=== PATIENT | male | born 1945 | race Caucasian/White ===

== ENCOUNTER 2017-05-15 12:03 | Outpatient (CLI) | payer MEDICARE, OTHER ==
[~2017-05-15] VITALS: Ht 167.6 cm; Wt 118.2 kg
--- NOTE | ~2017-05-15 | HEMODYNAMI ---
PATIENT:DAYA MONAHAN MEDICAL RECORD: [id number] : 49 LOCATION:[facility]ina[facility] ADMISSION DATE: 05/15/17 Generatedon:05/15/201714:23 Patient name: DAYA MONAHAN Patient #: [id number] SSN: : 1945 Date of study: 05/15/2017 Page: Of Hemodynamic Procedure Report Patient Data Patient Demographics Procedure consent was obtained First Name: DAYA Gender: Male Last Name: TANIYA : 1945 [facility] Initial: ANALIA Age: 72 year(s) Patient #: [id number] Race: Unknown Additional ID: [id number] Contact details Address: [place] [address] State: [place] City: [place] Zip code: [address] Past Medical History Allergies: No known allergies Admission Admission Data Admission Date: 05/15/2017 Admission Time: 12:03 Height (in.): 5.75 BSA: 0.39 (m2) Height (cm.): 14.61 BMI: 5698.99 (kg/m2) Weight (lbs.): 268 Weight (kg.): 121.56 Lab Results Lab Result Date: 05/15/2017 Lab Result Time: 0:00 Biochemistry Name Units Result Min Max BUN mg/dl 13 --(--*-)-- 7 18 Creatinine mg/dl 0.8 --(-*--)-- 0.6 1.3 CBC Name Units Result Min Max Hemoglobin g/dl 14.5 --(*---)-- 13.5 17.5 Procedure Procedure Types Cath Procedure Diagnostic Procedure [facility] w/Coronaries Miscellaneous Procedures Moderate Sedation up to 30 minutes Procedure Description Procedure Date Procedure Date: 05/15/2017 Procedure Start Time: 14:07 Procedure End Time: 14:22 Procedure Staff Name Function Cisco Woodall MD Performing Physician Carlton Mariscal RT Monitor Gem May RT Scrub Bryan Pierce RN Nurse Procedure Data Cath Procedure Fluoroscopy Diagnostic fluoroscopy Total fluoroscopy Time: 2.8 time: 2.8 min min Diagnostic fluoroscopy Total fluoroscopy dose: 767 dose: 767 mGy mGy Contrast Material Contrast Material Type Amount (ml) Isovue 300 72 Entry Location Entry Primary Successful Side Size Upsize Upsize Entry Closure Succes sful Closure Location (Fr) 1 (Fr) 2 (Fr) Remarks Device Remarks Femoral Right 5 Fr Exoseal artery Estimated blood loss: 5 ml Diagnostic catheters Device Type Used For End Catheter Placement MULTIPACK JL 4.0 5Fr Procedure catheter MULTIPACK 3DRC 5Fr Procedure catheter MULTIPACK Pigtail 5 Fr Procedure catheter Procedure Complications No complications Procedure Medications Medication Administration Route Dosage Oxygen NC 2 l/min Heparin Flush Bag added to field 2 bags (1000units/500ml NS) 0.9% NaCl I.V. 100 ml/hr Fentanyl I.V. 50 mcg Versed I.V. 1 mg Fentanyl I.V. 50 mcg Versed I.V. 1 mg Hemodynamics Rest BSA: 0.39 (m2) HGB: 14.5 (g/dl) O2 Consumption: Estimated: 43.98 (ml/min) O2 Con sumption indexed: Estimated:112.77 (ml/min/m) Heart Rate: 62 (bpm) Pressure Samples Time Site Value (mmHg) Purpose Heart Use Rate(bpm) 14:17 LV 145/10,13 Snapshot 78 14:17 AO 150/76(111) Pullback 82 14:17 LV 158/13,12 Pullback 82 Gradients Valve Time Site 1 Site 2 Mean SEP/DFP Peak To Heart Use (mmHg) (sec/min) Peak Rate (mmHg) (bpm) Aortic 14:17 LV AO 7 24 8 82 158/13,12 150/76(111) Calculations Valve P-P Mean Valve Index Valve Source Name Gradient Area Flow (cm2) Aortic 8 7 8 7 Snapshots Pre Cath Intra NCS Post Cath Vital Signs Time Heart Resp SPO2 etCO2 NIBP (mmHg) Rhythm Pain Sedation Rate (ipm) (%) (mmHg) Status Level (bpm) 13:55:18 60 20 98 0 167/95(147) NSR 0 (11) 10(A) , No pain 14:00:08 62 15 97 38 160/85(140) NSR 0 (11) 10(A) , No pain 14:04:59 62 17 99 27.3 150/82(117) NSR 0 (11) 10(A) , No pain 14:09:46 63 18 93 0 149/90(119) NSR 0 (11) 9(A) , No pain 14:14:33 72 17 96 13.6 148/91(115) NSR 0 (11) 9(A) , No pain 14:19:20 76 18 99 20.5 158/93(130) NSR 0 (11) 9(A) , No pain Medications Time Medication Route Dose Verified Delivered Reason Notes Effec tiveness by by 13:54:39 Oxygen NC 2 Cisco Bryan Per l/min [facility] Anmol Pierce RN physician 13:54:48 Heparin Flush added 2 Cisco Bryan used for Bag to bags [facility] Anmol Pierce RN procedure (1000units/500ml field NS) 13:54:57 0.9% NaCl I.V. 100 Cisco Bryan Per ml/hr [facility] Anmol Pierce RN physician 14:06:20 Fentanyl I.V. 50 Cisco Dowy for [facility] Anmol Pierce RN sedation 14:06:28 Versed I.V. 1 mg Cisco Dowy for [facility] Anmol Pierce RN sedation 14:08:34 Fentanyl I.V. 50 Cisco Dowy for [facility] Anmol Pierce RN sedation 14:08:39 Versed I.V. 1 mg Cisco Bryan for [facility] Anmol Pierce RN sedation Procedure Log Time Note 13:28:49 Patient Height : 5.75 inches 13:28:53 Patient Weight : 268 lbs 13:29:49 H&P Date Dictated: 04/18/2017 Within 30 days and on chart., H&P Addendum completed by physician on day of procedure. (MUST COMPLETE FOR ALL OUTPATIENTS). 13:30:03 Bryan Pierce RN sent for patient. Start room use. 13:30:19 Lab Result : BUN 13 mg/dl 13:30:19 Lab Result : Creatinine 0.8 mg/dl 13:30:19 Lab Result : Hemoglobin 14.5 g/dl 13:44:26 Patient received from Pre/Post Procedure Room to CCL 1 Alert and oriented. Tansferred to table in Supine position. 13:44:27 Warm blankets applied, and radha hugger turned on for patient comfort. 13:44:27 Correct patient and procedure confirmed by team. 13:44:30 Signed procedure consent form obtained from patient. 13:44:31 ECG and BP/O2 sat monitors applied to patient. 13:54:18 Vital chart was started 13:54:39 Oxygen 2 l/min NC was administered by Bryan Pierce RN; Per physician; 13:54:48 Heparin Flush Bag (1000units/500ml NS) 2 bags added to field was administered by Bryan Pierce RN; used for procedure; 13:54:57 0.9% NaCl 100 ml/hr I.V. was administered by Bryan Pierce RN; Per physician; 13:58:10 Baseline sample Acquired. 13:58:18 Rhythm: sinus rhythm 13:58:22 Pre-procedure instructions explained to patient. 13:58:24 Pre-op teaching completed and patient verbalized understanding. 13:59:07 Family in waiting room. 13:59:09 Patient NPO since Midnight. 13:59:14 Patient allergic to No known allergies 13:59:17 Is patient on blood thinner?No 13:59:18 Patient diabetic? No. 13:59:23 Previous problem with sedation/anesthesia? No ? 13:59:25 Snore? No 13:59:26 Sleep apnea? No 13:59:27 Deviated septum? No 13:59:28 Opens mouth fully? Yes 13:59:29 Sticks out tongue? Yes 13:59:36 Dentures? Yes in tight 13:59:37 Airway obstruction? No ? 13:59:46 Pre procedure: right dorsailis pedis pulse 2+ Normal; easily identifiable; not easily obliterated 14:00:19 Patient pain scale 0/10 ?. 14:00:31 IV patent on arrival in left forearm with 0.9% NaCl at [facility]. 14:00:46 Lab results completed and on chart. 14:00:53 Right groin area was prepped with chlora-prep and draped in sterile fashion 14:00:54 Alarms reviewed by R. N. 14:00:54 Sharps counted by scrub and verified by R.N. 14:00:58 Use device set Femoral Dx 14:01:02 ACIST Syringe (31091) opened to sterile field. 14:01:03 Medline Cath Pack ([id number]) opened to sterile field. 14:01:04 ACIST Hand Control (85401) opened to sterile field. 14:01:04 ACIST Manifold (80708) opened to sterile field. 14:01:36 Tegaderm 4 x 4 (1626W) opened to sterile field. 14:01:40 Bag Decanter (2002S) opened to sterile field. 14:01:45 PERCUTANEOUS ENTRY 19GA needle opened to sterile field. 14:01:46 DIAGNOSTIC Multipack 5Fr catheter set (QO4840) opened to sterile field. 14:01:47 DIAGNOSTIC WIRE .035 260cm J wire (292922) opened to sterile field. 14:01:47 SHEATH 5FR Heflin (YLW448) opened to sterile field. 14:01:54 Physician arrived 14::55 --------ALL STOP TIME OUT------ 14::55 Final Timeout: patient, procedure, and site verified with staff and physician. All members of the team are in agreement. 14:01:56 Right groin site verified by team. 14:01:59 Physical assessment completed. ASA score P 2 - A patient with mild systemic disease as per Cisco Woodall MD. 14:02:03 Sedation plan: IV Moderate Sedation Medication:Versed, Fentanyl 14:05:16 Zero performed for pressure channel P1 14:06:20 Fentanyl 50 mcg I.V. was administered by Bryan Pierce RN; for sedation; 14:06:28 Versed 1 mg I.V. was administered by Bryan Pierce RN; for sedation; 14:07:12 Procedure started. 14:07:12 Full Disclosure recording started 14:07:14 Local anesthetic to right femoral artery with Lidocaine 2% by Cisco Woodall MD.INITIAL ACCESS ONLY 14:08:32 A 5 Fr sheath was inserted into the Right Femoral artery 14:08:34 Fentanyl 50 mcg I.V. was administered by Bryan Pierce RN; for sedation; 14:08:39 Versed 1 mg I.V. was administered by Bryan Pierce RN; for sedation; 14:11:12 A MULTIPACK JL 4.0 5Fr catheter was advanced over the wire and used for Procedure. 14:13:05 Catheter exchanged over wire. 14:13:12 A MULTIPACK 3DRC 5Fr catheter was advanced over the wire and used for Procedure. 14:15:29 Catheter exchanged over wire. 14:15:35 A MULTIPACK Pigtail 5 Fr catheter was advanced over the wire and used for Procedure. 14:16:01 EXOSEAL 5Fr (EX500) opened to sterile field. 14:17:17 LV hemodynamics recorded. 14:17:18 LV gram done using [place] 14:17:20 Injector settings: Ml/sec: 10, Volume: 20, 14:17:32 EF : 55 % 14:17:45 Catheter removed. 14:18:08 Sheath removed intact; hemostasis achieved with Exoseal to the Right Femoral artery. 14:18:10 Procedure ended.(Physican Out) 14:18:19 Fluoroscopy time 02.80 minutes. 14:18:23 Fluoroscopy dose: 767 mGy 14:18:23 Flurop Dose total: 767 14:18:31 Contrast amount:Isovue 300 72ml. 14:18:35 Sharps counted by scrub and verified by R.N. 14:18:37 Insertion/operative site no bleeding no hematoma. 14:18:39 Post-op/insertion site Right Femoral artery dressed using a 4 x 4 and Tegaderm. 14:18:43 Post right femoral artery:stable, soft, clean and dry 14:19:09 Post Procedure Pulses reassessed and unchanged 14:19:14 Post-procedure physical assessment completed. ASA score P 2 - A patient with mild systemic disease as per Cisco Woodall MD. 14:19:18 Post procedure rhythm: unchanged. 14:19:21 Estimated blood loss: 5 ml 14:19:23 Post procedure instruction explained to patient.Patient verbalizes understanding. 14:19:23 Patient needs reinforcement of post procedure teaching. 14:20:54 Procedure type changed to Cath procedure, Diagnostic procedure, LHC, LHC w/Coronaries, Miscellaneous Procedures, Moderate Sedation up to 30 minutes 14:22:00 Procedure and supply charges have been captured, reviewed, submitted and are correct. 14:22:04 Procedure Complication : No complications 14:22:06 Vital chart was stopped 14:22:07 See physician's report for complete and final results. 14:22:09 Report given to Pre/Post Procedure Room. 14:22:12 Patient transfered to Pre/Post Procedure Room with Stretcher. 14:22:15 Procedure ended. 14:22:15 Full Disclosure recording stopped 14:22:31 End room use (Document Last) Device Usage Item Name Manufacture Quantity Catalog Hospital Part Current Minimal Lot# / Number Charge Number Stock Stock Serial# Code ACIST Acist 1 80733 739572 216356 714663 20 Syringe Medical (03796) Systems Inc Medline Cath Cardinal 1 [id number] 495762 08544 771255 5 Pack Health ([id number]) ACIST Hand Acist 1 70118 001687 144240 131803 5 Control Medical (99378) Systems Inc ACIST Acist 1 55301 396615 647794 877561 5 Manifold Medical (90597) Systems Inc Tegaderm 4 x 3M 1 1626W 268670 554922 306190 5 4 (1626W) Bag Decanter Microtek 1 2002S 066175 05580 606246 5 (2002S) Medical Inc. PERCUTANEOUS Cook Medical 1 V18599 134310 566185 5 ENTRY 19GA needle DIAGNOSTIC Cardinal 1 QA7082 202388 52855 189818 30 Multipack Health 5Fr catheter set (WL6006) DIAGNOSTIC [facility] 1 963372 132437 312911 268262 30 WIRE .035 260cm J wire (330981) SHEATH 5FR Terumo 1 KNO103 452727 351613 000444 40 Heflin (TVL664) MULTIPACK JL Cardinal 1 987622 5 4.0 5Fr Health catheter MULTIPACK Cardinal 1 780608 5 3DRC 5Fr Health catheter MULTIPACK Cardinal 1 577006 5 Pigtail 5 Fr Health catheter EXOSEAL 5Fr Cardinal 1 EX500 381820 051119 885036 10 (EX500) Health Signature Audit [place] Stage Time Signature Unsigned Intra-Procedure 05/15/2017 Carlton Mariscal 2:23:20 PM RT(R) Signatures Monitor : Carlton Mariscal RT Signature : Date : Time : [facility] [address] [place] [address]
--- NOTE | ~2017-05-15 | OP ---
PATIENT NAME: DAYA MONAHAN MEDICAL RECORD: [id number] :49 LOCATION:D.CAT ADMISSION DATE: SURGEON: STACEY QUIROZ MD DATE OF OPERATION: 05/15/2017 PROCEDURE: Left heart catheterization, selective coronary angiography, right femoral artery approach. CATHETERS: A 5-Macedonian sheath, 5/4 Maggi, 5/4 pig. The procedure was well tolerated. The patient returned to [place], sheath removed. ExoSeal device was placed. FINDINGS: Left ventriculography in 30-degree HAMILTON view: Normal wall motion, normal systolic function. CORONARY ANATOMY: 1. Left main: Left main tapers about 50% stenosis. 2. LAD: LAD proximal one-third has a complex 80% stenosis. 3. Circumflex: Really, there is a combination OM/ramus and circumflex has about 80% stenosis proximally, good target distally. 4. Right coronary artery: Totally occluded and fills via [id number] collaterals. IMPRESSION: Multivessel coronary artery disease, a good target distally, best served by coronary bypass grafting. Dr. Sheppard was consulted for this purpose. TRANSINT:[id number] Voice Confirmation ID: [id number] DOCUMENT ID: [id number] STACEY QUIROZ MD at 1144 CC: [id number] DICTATION DATE: 05/15/17 1426 RN ORTHOPEDIC: 05/15/17 1615 DEP CLI 05/15/17 [place] [id number] [place] [id number]
[2017-05-15] MEDS ORDERED: CARDIZEM60 MG PO (12:24)
[2017-05-15 12:27] VITALS: BP 150/79; Ht 167.6 cm; Wt 118.2 kg
[2017-05-15 12:48] LABS: BASOPHILS 0.5 % (0-2); EOSINOPHILS 3.7 % (0-7); HEMATOCRIT 43.8 % (42.0-54.0); HEMOGLOBIN 14.5 g/dL (13.5-17.5); IMMATURE GRANULOCYTES 0.3 % (0-5); LYMPHOCYTES 13.5 % (15-50); MCHC 33.1 g/dL (31.0-37.0); MCV 93.8 fL (80.0-100.0); MEAN PLATELET VOLUME 9.9 fL (7.4-10.4); MONOCYTES 7.5 % (2-11); NEUTROPHILS 74.5 % (40-80); PLATELET COUNT 207 10x3/uL (130-400); RBC 4.67 10x6/uL (4.20-6.10); RDW 14.2 % (11.5-14.5); WBC 6.2 10x3/uL (4.8-10.8)
[2017-05-15 13:03] LABS: CALC OSMOLALITY 277 mosm/kg (275-300); CALCIUM 8.7 mg/dL (8.5-10.1); CARBON DIOXIDE 29.3 mmol/L (21.0-32.0); CHLORIDE - SERUM 105 mmol/L (98-107); CREATININE - SERUM 0.8 mg/dL (0.6-1.3); GLUCOSE 103 mg/dL (74-106); POTASSIUM - SERUM 5.2 mmol/L (3.5-5.1); SODIUM 139 mmol/L (136-145); UREA NITROGEN 13 mg/dL (7-18); eGFR NON AFRICAN AMERICAN > 90 mL/min (90-120)
== END 2017-05-15 16:45 | disposition home or self-care (01) ==
LOC: D.CATH 12:03
PROVIDERS: Internal Medicine Interventional Cardiology
DX: I25.119 Atherosclerotic heart disease of native coronary artery with unspecified angina pectoris (principal); Z01.812 Encounter for preprocedural laboratory examination

== ENCOUNTER 2017-05-16 22:25 | Emergency (ER) | payer MEDICARE, OTHER ==
[2017-05-15 12:27] VITALS: BMI 42.0
[~2017-05-16 22:25] MED LIST: CARDIZEM60 MG PO
== END 2017-05-16 23:28 | disposition home or self-care (01) ==
LOC: D.ER 22:25
DX: Z03.89 Encounter for observation for other suspected diseases and conditions ruled out (principal)